=== PATIENT | male | born 1975 | race Two or more races ===

== ENCOUNTER 2017-05-27 16:47 | Emergency (ER) | payer SELFPAY ==
[~2017-05-27] VITALS: Ht 162.6 cm; Wt 90.7 kg
[~2017-05-27 16:47] MED LIST: AUGMENTIN TAB875 MG PO; FLONASE1 SPRAYS; LORATADINE10 M2 PO
[2017-05-27] MEDS ORDERED: LORazepam 0.5mg tab ORAL ONE (18:30)
[2017-05-27 18:57] VITALS: BP 154/76
--- NOTE | 2017-05-27 18:57 | Emergency Room Report ---
History of Present Illness General Chief Complaint: General Complaint Source: Patient Present Illness HPI 41-year-old male presents to the emergency department complaining of acute episode of palpitation while at work this afternoon. Patient denies pain he denies shortness of breath, recent upper respiratory symptoms or cardiac history. Patient denies orthopnea, claudication, swelling of the lower extremities. Patient states that he took 81 mg of aspirin PO at the onset of his symptoms. He also reports caffeine intake this am. He denies appreciable stress, over he does state that he worries often and he may have overreacted to his symptoms. Patient denies significant past medical history and he has not prescribed any medications. Denies CP, LOC, AMS, dizziness, Changes in Vision, Sensation, paresthesias, or a sudden severe headache. Allergies: Coded Allergies: No Known Allergies (Unverified , 05/27/17) Patient History Past Medical History: see triage record Past Surgical History: none Pertinent Family History: none Reviewed Nursing Documentation: PMH: Agreed, PSxH: Agreed Nursing Documentation-PMH Past Medical History: No Stated History Review of Systems All Other Systems: negative except mentioned in HPI Physical Exam Vital Signs Date Time Temp Pulse Resp B/P (MAP) Pulse Ox O2 Delivery O2 Flow Rate FiO2 05/27/17 16:59 98.2 97 20 158/79 99 Room Air Sp02 EP Interpretation: reviewed, normal General Appearance: no apparent distress, alert, GCS 15, non-toxic Head: normocephalic, atraumatic ENT: hearing grossly normal, normal voice Neck: full range of motion Respiratory: chest non-tender, lungs clear, normal breath sounds, no respiratory distress, no accessory muscle use, no wheezing, speaking full sentences Cardiovascular #1: regular rate, rhythm, no edema, no gallop, no JVD, no murmur , normal capillary refill Musculoskeletal: back normal, gait/station normal, normal range of motion, non- tender Neurologic: alert, oriented x3, responsive, motor strength/tone normal, sensory intact, speech normal, grossly normal Psychiatric: judgement/insight normal Skin: normal color, no rash, warm/dry, well hydrated Medical Decision Making PA Attestation Dr. Astudillo is my supervising Physician whom patient management has been discussed with. Diagnostic Impression: Primary Impression: Intermittent palpitations ER Course 41-year-old male presents to the emergency department complaining of acute episode of palpitation while at work this afternoon. Patient denies pain he denies shortness of breath, recent upper respiratory symptoms or cardiac history. Patient denies orthopnea, claudication, swelling of the lower extremities. Patient states that he took 81 mg of aspirin PO at the onset of his symptoms. He also reports caffeine intake this am. He denies appreciable stress, over he does state that he worries often and he may have overreacted to his symptoms. Patient denies significant past medical history and he has not prescribed any medications. Denies CP, LOC, AMS, dizziness, Changes in Vision, Sensation, paresthesias, or a sudden severe headache. Ddx considered but are not limited to MA, pneumonia, Pericarditis, a-fib, dysrhythmia, PE, ACS,, Chest wall contusion. aortic dissection. just to name a few. Vital signs: are WNL, pt. is afebrile H&PE are most consistent with normal PE, possible anxiety reaction, no evidence of a-fib or irregular beats. ORDERS: - EK NSR- reviewed by [facility] ED INTERVENTIONS: - Ativan PO -D/W the patient that I do not identify an emergent condition at this time and that he should follow up with his primary care provider so he can get a cardiology referral to have further evaluation and possibly Holter monitor especially symptoms recur. In the meantime will treat conservatively with low- dose anti-anxiety medication. DISCHARGE: At this time pt. is stable for d/c to home. Will provide printed patient care instructions, and any necessary prescriptions. Care plan and follow up instructions have been discussed with the patient prior to discharge. EKG Diagnostic Results EP Interpretation: Dr. Astudillo Rate: normal Rhythm: NSR ST Segments: no acute changes ASA given to the pt in ED: No PA Scribe Text this interpretation was scribed by ALBANIA Delgado Last Vital Signs Date Time Temp Pulse Resp B/P (MAP) Pulse Ox O2 Delivery O2 Flow Rate FiO2 05/27/17 16:59 98.2 97 20 158/79 99 Room Air Disposition: HOME, SELF-CARE Condition: Stable Scripts Lorazepam* (ATIVAN*) 0.5 Mg Tablet 0.5 MG ORAL BID, #4 TAB Prov: Veronica Delgado 05/27/17 Referrals: NOT CHOSEN IPA/,REFERRING (PCP) Patient Instructions: Palpitations Additional Instructions: Take medications as directed. Follow up with a Primary Care Provider in 3 days FOR STUDIO OPERATOR REFERRAL , even if your symptoms have resolved. --Please review list of primary care clinics, if you do not already have a primary care provider Return sooner to ED if new symptoms occur, or current symptoms become worse. - Please note that this Emergency Department Report was dictated using lmbanghistoric site administrator technology software, occasionally this can lead to erroneous entry secondary to interpretation by the dictation equipment. Veronica Delgado May 27, 2017 18:57
[2017-05-27] MEDS ORDERED: ATIVAN0.5 MG ORAL (18:58)
[2017-05-27 19:09] VITALS: BP 154/76
--- NOTE | 2017-05-28 17:56 | Cardiology Report ---
APPROVED REPORT EKG Measurement Heart [id number] Normal sinus rhythm Normal ECG
== END 2017-05-27 19:12 | disposition home or self-care (01) ==
LOC: EMR 17:50
DX: R00.2 Palpitations (principal)
CPT/HCPCS: 93005; 99283